=== PATIENT | female | born 1955 | race African-American/Black ===

== ENCOUNTER → 2016-12-19 | Day surgery (SDC) | payer MEDICARE, MEDICAID ==
[~2016-12-19] VITALS: Ht 165.1 cm; Wt 103.4 kg
[~2016-12-19] MED LIST: ATOR10TA PO; DECADRON ONE; GABA800T2 PO; HYDR12.53 PO; LEVO50TA6 PO; LIDOCAINE 1% VIAL ONE; NORCO 5 MG PO ONE; NS 1000ML 1,000 ML IV SCH; OMEP20CA12 PO; ROPI2TAB6 PO; VERSED ONE
[2016-12-19 07:58] VITALS: BP 111/78
[2016-12-19 08:45] LABS: CARBON DIOXIDE 26.5 mmol/L (20.0-32); GLUCOSE 99 mg/dL (70-110)
[2016-12-19 08:46] LABS: CALCIUM 8.9 mg/dL (8.4-10.5)
[2016-12-19 10:52] VITALS: BP 153/80
[2016-12-19 11:15] VITALS: BP 127/78
[2016-12-19 11:30] VITALS: BP 102/73
[2016-12-19 11:45] VITALS: BP 133/76
--- NOTE | 2016-12-19 11:54 | OPH ---
DATE OF SURGERY: 12/19/2016 PROCEDURES: 1. Bilateral lumbar facet L3-L4 facet injection. 2. Bilateral lumbar L4-L5 facet joint injection. 3. Bilateral lumbar L5-S1 facet joint injection. 4. Needle fluoroscopic guidance. REASON FOR PROCEDURE: Lumbar facet arthropathy/pain. PHYSICIAN: Gogo Beltre MD MEDICATIONS INJECTED: 1 mL of Decadron and 1 mL of 1% lidocaine. 1 mL was injected per level. LOCAL ANESTHETIC INJECTED: 4 mL of 1% lidocaine per level. ANESTHESIA: MAC. ESTIMATED BLOOD LOSS: None. COMPLICATIONS: None. TECHNIQUE: Time-out was taken to identify the correct patient, procedure and site prior to starting the procedure. With the patient lying in prone position, the patient was prepped and draped in usual sterile fashion using DuraPrep and fenestrated drape. The above named levels were determined under fluoroscopy. Local anesthetic was given by raising skin wheal and going down to the hub with 27-gauge 1.25-inch needle. A 22-gauge 3.5-inch Kriss needle was introduced into each facet joint above. After a negative aspirate to make sure there was no intravascular placement, Omnipaque 180 was injected to confirm intraarticular spread and confirm no vascular run-off. Medication injected slowly. The procedures were completed without complication and tolerated well. The patient was monitored throughout the procedure. The patient was given postprocedure and discharge instructions to follow at home. The patient was discharged in stable condition. A followup appointment was made. PREPROCEDURE PAIN SCORE: 8/10. POSTPROCEDURE PAIN SCORE: 0/10. Gogo Beltre MD DR: [email or web address] JOB# [id number]
== END ==
LOC: SURG 00:03
PROVIDERS: ATTEND Anesthesiology
DX: M12.9 Arthropathy, unspecified (principal); I10 Essential (primary) hypertension; K21.9 Gastro-esophageal reflux disease without esophagitis; E03.9 Hypothyroidism, unspecified; E78.00 Pure hypercholesterolemia, unspecified; Z90.710 Acquired absence of both cervix and uterus; F17.210 Nicotine dependence, cigarettes, uncomplicated
CPT/HCPCS: 36415; 64493; 64494; 64495; 80048; 93005; J1100; J2001 ×2; J2250; Q9965; 77003